=== PATIENT | female | born 1995 | race Caucasian/White ===

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

== ENCOUNTER 2017-01-17 13:53 | Emergency (ER) | payer SELFPAY ==
[~2017-01-17] VITALS: Ht 160 cm; Wt 63.6 kg
[2017-01-17 13:55] VITALS: TEMP 99.9
[2017-01-17 14:28] LABS: BASO % 0.4 % (0.0-2.0); EOS % 0.7 % (0-4.0); GRAN # 4.2 (1.4-6.5); GRAN % 75.7 % (42.2-75.2); HEMATOCRIT 43.5 % (35.0-45.0); HEMOGLOBIN 14.6 g/dl (12.0-15.0); LYMPH # 1.1 (1.2-3.4); LYMPH % 19.7 % (20.0-51.0); MEAN CELL VOLUME 88 fl (80.0-95.0); MEAN CORPUSCULAR HEMOGLOBIN 30 pg (26.0-32.0); MEAN CORPUSCULAR HGB CONC 34 g/dl (33.0-37.0); MEAN PLATELET VOLUME 9.4 fl (7.4-10.4); MONO # 0.2 (0.1-0.6); MONO % 3.1 % (1.7-9.3); PLATELET COUNT 282 K/mm3 (130-400); RED BLOOD COUNT 4.92 M/mm3 (4.10-5.30); WHITE BLOOD COUNT 5.5 K/mm3 (4.8-10.8)
[2017-01-17 14:54] LABS: ALBUMIN 4.7 gm/dL (3.5-5.0); ANION GAP 14 mmol/L (7-16); BLOOD UREA NITROGEN 8 mg/dL (7-17); CALCIUM 9.5 mg/dL (8.4-10.2); CARBON DIOXIDE 18 mmol/L (22-30); CHLORIDE 107 mmol/L (98-107); CREATININE, serum 0.61 mg/dL (0.52-1.25); GLUCOSE 119 mg/dL (74-106); POTASSIUM 3.6 mmol/L (3.4-5.0); SODIUM 139 mmol/L (137-145); TOTAL PROTEIN 7.5 gm/dL (6.4-8.2)
[2017-01-17 14:55] LABS: ADJUSTED CALCIUM 8.9 mg/dL (8.4-10.2); ALANINE AMINOTRANSFERASE 16 U/L (9-52); ALKALINE PHOSPHATASE 79 U/L (50-136); BILIRUBIN,TOTAL 0.5 mg/dL (0.0-1.0); C-REACTIVE PROTEIN < 0.5 mg/dL (0.0-0.9); LIPASE 94 U/L (23-300)
[2017-01-17 15:22] LABS: PH 6 (5-8); URINE APPEARANCE Hazy; URINE BACTERIA Rare /hpf; URINE BILIRUBIN Negative (NEGATIVE); URINE BLOOD 1+ (NEGATIVE); URINE COLOR Straw; URINE GLUCOSE Negative (NEGATIVE); URINE KETONE Negative (NEGATIVE); URINE RBC 0-2 /hpf; URINE UROBILINOGEN Negative (NEGATIVE)
[2017-01-17] MEDS ORDERED: PERCOCET 325 MG1 TA2 PO (16:04)
[2017-01-17 16:14] VITALS: BP 123/83; PULSE 96
== END 2017-01-17 16:19 | disposition home or self-care (01) ==
LOC: COL.ER 13:53
PROVIDERS: Family Medicine
DX: R10.11 Right upper quadrant pain (principal); Z90.89 Acquired absence of other organs; Z98.890 Other specified postprocedural states
CPT/HCPCS: J1170; J2405; J2550; J7030; Q9967

== ENCOUNTER 2017-06-12 19:40 | Emergency (ER) | payer SELFPAY ==
[~2017-06-12] VITALS: Ht 160 cm; Wt 81.8 kg
[~2017-06-12 19:40] MED LIST changes: +PERCOCET 325 MG1 TA2 PO
[2017-06-12 19:49] VITALS: BP 114/78; TEMP 98.1
[2017-06-12] MEDS ORDERED: ROXICODONE30 MG PO (19:54)
[2017-06-12] MEDS ORDERED: IMODIUM 2MG CAPS2 MG PO (19:55)
[2017-06-12 20:50] LABS: COLLECTION METHOD CLEAN CATCH
[2017-06-12 20:54] LABS: BASO % 0.5 % (0.0-2.0); EOS # 0.2 (0.0-0.7); EOS % 2.4 % (0-4.0); GRAN % 46.4 % (42.2-75.2); HEMATOCRIT 42.3 % (35.0-45.0); LYMPH # 2.9 (1.2-3.4); LYMPH % 45.5 % (20.0-51.0); MEAN CELL VOLUME 93 fl (80.0-95.0); MEAN CORPUSCULAR HEMOGLOBIN 31 pg (26.0-32.0); MEAN CORPUSCULAR HGB CONC 33 g/dl (33.0-37.0); MEAN PLATELET VOLUME 9.1 fl (7.4-10.4); MONO # 0.3 (0.1-0.6); MONO % 4.9 % (1.7-9.3); PLATELET COUNT 300 K/mm3 (130-400); RED BLOOD COUNT 4.57 M/mm3 (4.10-5.30); REDCELL DISTRIBUTION WIDTH-CV 12.5 % (11.5-14.5)
[2017-06-12 21:00] LABS: MUCOUS Present /lpf; PH 7 (5-8); SQUAMOUS EPITHELIAL >50 /hpf; URINE APPEARANCE Cloudy; URINE BACTERIA Rare /hpf; URINE BILIRUBIN Negative (NEGATIVE); URINE BLOOD Negative (NEGATIVE); URINE COLOR Yellow; URINE GLUCOSE Negative (NEGATIVE); URINE KETONE Trace (NEGATIVE); URINE LEUKOCYTE ESTERASE Negative (NEGATIVE); URINE NITRATE Negative (NEGATIVE); URINE PROTEIN(semi-quant) 1+ (NEGATIVE); URINE RBC 0-2 /hpf; URINE UROBILINOGEN Negative (NEGATIVE)
[2017-06-12 21:04] LABS: TRICYCLIC ANTIDEPRESS URINE NEGATIVE
[2017-06-12 21:05] LABS: ALBUMIN 4.7 gm/dL (3.5-5.0); BILIRUBIN,TOTAL 0.3 mg/dL (0.0-1.0); CALCIUM 9.7 mg/dL (8.4-10.2); CREATININE, serum 0.56 mg/dL (0.52-1.25); POTASSIUM 3.7 mmol/L (3.4-5.0); TOTAL PROTEIN 7.2 gm/dL (6.4-8.2)
[2017-06-12] MEDS ORDERED: PHENERGAN 25 TA25 MG PO (21:28)
[2017-06-12 21:38] VITALS: PULSE 94
== END 2017-06-12 21:39 | disposition home or self-care (01) ==
LOC: COL.ER 19:40
PROVIDERS: Physician Assistant
DX: R10.11 Right upper quadrant pain (principal); R11.2 Nausea with vomiting, unspecified; G89.29 Other chronic pain; M25.562 Pain in left knee; M25.561 Pain in right knee; Z98.890 Other specified postprocedural states; Z90.89 Acquired absence of other organs
CPT/HCPCS: J2270; J2765; J7030

== ENCOUNTER 2017-06-14 15:24 | Emergency (ER) | payer SELFPAY ==
[~2017-06-14] VITALS: Ht 160 cm; Wt 81.8 kg
[~2017-06-14 15:24] MED LIST changes: +IMODIUM 2MG CAPS2 MG PO; +PHENERGAN 25 TA25 MG PO; +ROXICODONE30 MG PO
[2017-06-14 15:26] VITALS: BP 138/87; TEMP 99
[2017-06-14] MEDS ORDERED: PERCOCET 325 MG1 TAB (15:43)
[2017-06-14 15:55] LABS: COLLECTION METHOD CLEAN CATCH
[2017-06-14 16:00] LABS: MUCOUS Present /lpf; PH 6 (5-8); SQUAMOUS EPITHELIAL 20-50 /hpf; URINE APPEARANCE Cloudy; URINE BACTERIA Occasional /hpf; URINE BILIRUBIN Negative (NEGATIVE); URINE BLOOD Negative (NEGATIVE); URINE COLOR Yellow; URINE GLUCOSE Negative (NEGATIVE); URINE KETONE Negative (NEGATIVE); URINE LEUKOCYTE ESTERASE Negative (NEGATIVE); URINE NITRATE Negative (NEGATIVE); URINE PROTEIN(semi-quant) Negative (NEGATIVE); URINE RBC 0-2 /hpf; URINE UROBILINOGEN Negative (NEGATIVE)
[2017-06-14 16:07] LABS: BASO % 0.6 % (0.0-2.0); EOS # 0.1 (0.0-0.7); GRAN # 2.4 (1.4-6.5); GRAN % 51.4 % (42.2-75.2); HEMATOCRIT 40.8 % (35.0-45.0); HEMOGLOBIN 13.3 g/dl (12.0-15.0); LYMPH # 1.8 (1.2-3.4); LYMPH % 39.4 % (20.0-51.0); MEAN CELL VOLUME 94 fl (80.0-95.0); MEAN CORPUSCULAR HEMOGLOBIN 31 pg (26.0-32.0); MEAN CORPUSCULAR HGB CONC 33 g/dl (33.0-37.0); MONO # 0.3 (0.1-0.6); MONO % 5.4 % (1.7-9.3); PLATELET COUNT 259 K/mm3 (130-400); RED BLOOD COUNT 4.36 M/mm3 (4.10-5.30); REDCELL DISTRIBUTION WIDTH-CV 12.3 % (11.5-14.5)
[2017-06-14 16:20] LABS: ALANINE AMINOTRANSFERASE 16 U/L (9-52); ALBUMIN 4.6 gm/dL (3.5-5.0); ALKALINE PHOSPHATASE 66 U/L (50-136); ANION GAP 10 mmol/L (7-16); AST,SGOT 17 U/L (15-37); BILIRUBIN,TOTAL 0.3 mg/dL (0.0-1.0); BLOOD UREA NITROGEN 13 mg/dL (7-17); CALCIUM 9.6 mg/dL (8.4-10.2); CARBON DIOXIDE 24 mmol/L (22-30); CHLORIDE 103 mmol/L (98-107); CREATININE, serum 0.59 mg/dL (0.52-1.25); GLUCOSE 88 mg/dL (74-106); LIPASE 53 U/L (23-300); POTASSIUM 3.9 mmol/L (3.4-5.0); SODIUM 137 mmol/L (137-145); TOTAL PROTEIN 7.3 gm/dL (6.4-8.2)
[2017-06-14 16:26] LABS: C-REACTIVE PROTEIN < 0.5 mg/dL (0.0-0.9)
[2017-06-14 17:00] VITALS: PULSE 94
== END 2017-06-14 17:02 | disposition home or self-care (01) ==
LOC: COL.ER 15:24
PROVIDERS: Nurse Practitioner
DX: R10.11 Right upper quadrant pain (principal); M25.569 Pain in unspecified knee; G89.29 Other chronic pain; Z90.49 Acquired absence of other specified parts of digestive tract

== ENCOUNTER 2020-01-09 17:50 | Emergency (ER) | payer SELFPAY ==
[~2020-01-09] VITALS: Ht 160 cm; Wt 90.9 kg
[~2020-01-09 17:50] MED LIST changes: +PERCOCET 325 MG1 TAB
[2020-01-09 18:02] VITALS: TEMP 98.4
[2020-01-09 18:45] LABS: COLLECTION METHOD CLEAN CATCH
[2020-01-09 18:50] LABS: BASO % 0.3 % (0.0-2.0); EOS % 0.1 % (0-4.0); GRAN # 5.6 (1.4-6.5); GRAN % 80.2 % (42.2-75.2); HEMATOCRIT 41.7 % (37.0-47.0); LYMPH # 1.1 (1.2-3.4); LYMPH % 15.1 % (20.0-51.0); MEAN CELL VOLUME 90 fl (80.0-100.0); MEAN CORPUSCULAR HEMOGLOBIN 30 pg (27.0-31.0); MEAN CORPUSCULAR HGB CONC 34 g/dl (33.0-37.0); MEAN PLATELET VOLUME 9.1 fl (7.4-10.4); MONO # 0.3 (0.1-0.6); PLATELET COUNT 323 K/mm3 (130-400); RED BLOOD COUNT 4.64 M/mm3 (4.10-5.30); REDCELL DISTRIBUTION WIDTH-CV 11.8 % (11.5-14.5)
[2020-01-09 18:55] LABS: MUCOUS Present /lpf; PH 5 (5-8); SQUAMOUS EPITHELIAL 0-2 /hpf; URINE APPEARANCE Clear; URINE BACTERIA Rare /hpf; URINE BILIRUBIN Negative (NEGATIVE); URINE BLOOD Negative (NEGATIVE); URINE COLOR Yellow; URINE GLUCOSE Negative (NEGATIVE); URINE KETONE 1+ (NEGATIVE); URINE LEUKOCYTE ESTERASE Trace (NEGATIVE); URINE NITRATE Negative (NEGATIVE); URINE PROTEIN(semi-quant) Negative (NEGATIVE); URINE UROBILINOGEN Negative (NEGATIVE)
[2020-01-09 19:17] LABS: ALBUMIN 4.9 gm/dL (3.5-5.0); BILIRUBIN,TOTAL 0.5 mg/dL (0.0-1.0); C-REACTIVE PROTEIN 0.7 mg/dL (0.0-0.9); CALCIUM 9.4 mg/dL (8.4-10.2); CREATININE, serum 0.53 (0.52-1.25); POTASSIUM 3.5 mmol/L (3.4-5.0); TOTAL PROTEIN 8.2 gm/dL (6.4-8.2)
[2020-01-09] MEDS ORDERED: AMOXICILLIN 8751 TAB PO (20:22)
[2020-01-09 20:55] VITALS: BP 105/84; PULSE 74
== END 2020-01-09 21:00 | disposition home or self-care (01) ==
LOC: COL.ER 17:50
PROVIDERS: Family Medicine
DX: N39.0 Urinary tract infection, site not specified (principal); R10.11 Right upper quadrant pain
CPT/HCPCS: J1885; J2405; J3010; J7120

== ENCOUNTER 2020-07-23 20:23 | Emergency (ER) | payer SELFPAY ==
[~2020-07-23] VITALS: Ht 157.5 cm; Wt 86.4 kg
[~2020-07-23 20:23] MED LIST changes: +AMOXICILLIN 8751 TAB PO
[2020-07-23 20:28] VITALS: TEMP 98.1
[2020-07-23 21:12] LABS: COLLECTION METHOD CLEAN CATCH
[2020-07-23 21:33] LABS: PH 5 (5-8); SQUAMOUS EPITHELIAL 0-2 /hpf; URINE APPEARANCE Hazy; URINE BACTERIA None Seen /hpf; URINE BILIRUBIN Negative (NEGATIVE); URINE BLOOD 1+ (NEGATIVE); URINE COLOR Yellow; URINE GLUCOSE Negative (NEGATIVE); URINE KETONE Negative (NEGATIVE); URINE LEUKOCYTE ESTERASE 2+ (NEGATIVE); URINE NITRATE Negative (NEGATIVE); URINE PROTEIN(semi-quant) Negative (NEGATIVE); URINE UROBILINOGEN Negative (NEGATIVE)
[2020-07-23] MEDS ORDERED: CEPHALEXIN500 M1 PO (22:03)
[2020-07-23 22:25] VITALS: BP 139/96; PULSE 109
== END 2020-07-23 22:27 | disposition home or self-care (01) ==
LOC: COL.ER 20:23
PROVIDERS: Emergency Medicine
DX: N36.8 Other specified disorders of urethra (principal); N39.0 Urinary tract infection, site not specified; Z32.02 Encounter for pregnancy test, result negative; Z90.89 Acquired absence of other organs; Z88.5 Allergy status to narcotic agent; Z91.041 Radiographic dye allergy status

== ENCOUNTER 2021-02-19 23:37 | Emergency (ER) | payer SELFPAY ==
[~2021-02-19] VITALS: Ht 160 cm; Wt 86.4 kg
[~2021-02-19 23:37] MED LIST changes: +CEPHALEXIN500 M1 PO
[2021-02-20 00:05] VITALS: TEMP 98.3
[2021-02-20 01:17] LABS: BASO % 0.3 % (0.0-2.0); EOS % 0.3 % (0-4.0); GRAN # 7.4 (1.4-6.5); HEMATOCRIT 41.8 % (37.0-47.0); LYMPH # 1.7 (1.2-3.4); LYMPH % 17.2 % (20.0-51.0); MEAN CELL VOLUME 88 fl (80.0-100.0); MEAN CORPUSCULAR HEMOGLOBIN 29 pg (27.0-31.0); MEAN CORPUSCULAR HGB CONC 34 g/dl (33.0-37.0); MEAN PLATELET VOLUME 9.2 fl (7.4-10.4); MONO # 0.6 (0.1-0.6); MONO % 5.8 % (1.7-9.3); PLATELET COUNT 353 K/mm3 (130-400); RED BLOOD COUNT 4.76 M/mm3 (4.10-5.30); REDCELL DISTRIBUTION WIDTH-CV 12.5 % (11.5-14.5)
[2021-02-20 02:03] LABS: COLLECTION METHOD CLEAN CATCH
[2021-02-20 02:11] LABS: PH 5 (5-8); URINE APPEARANCE Hazy; URINE BACTERIA Rare /hpf; URINE BILIRUBIN Negative (NEGATIVE); URINE BLOOD Negative (NEGATIVE); URINE COLOR Yellow; URINE GLUCOSE Negative (NEGATIVE); URINE KETONE 1+ (NEGATIVE); URINE LEUKOCYTE ESTERASE Negative (NEGATIVE); URINE NITRATE Negative (NEGATIVE); URINE PROTEIN(semi-quant) 1+ (NEGATIVE)
[2021-02-20 02:12] LABS: BILIRUBIN,TOTAL 0.8 mg/dL (0.0-1.0); C-REACTIVE PROTEIN 1.3 mg/dL (0.0-0.9); CALCIUM 9.3 mg/dL (8.4-10.2); CREATININE, serum 0.51 (0.52-1.25); POTASSIUM 3.6 mmol/L (3.4-5.0); TOTAL PROTEIN 8.4 gm/dL (6.4-8.2)
[2021-02-20 02:51] VITALS: BP 111/87; PULSE 95
== END 2021-02-20 02:51 | disposition home or self-care (01) ==
LOC: COL.ER 23:37
PROVIDERS: Emergency Medicine
DX: R10.11 Right upper quadrant pain (principal); Z32.02 Encounter for pregnancy test, result negative
CPT/HCPCS: J2405; J2550; J3010; J7030

== ENCOUNTER 2021-03-15 21:36 | Observation (INO) | payer SELFPAY ==
[~2021-03-15] VITALS: Ht 160 cm; Wt 124.0 kg
[2021-03-15 22:17] LABS: BASO % 0.1 % (0.0-2.0); GRAN # 8.4 (1.4-6.5); GRAN % 87.4 % (42.2-75.2); HEMATOCRIT 40.8 % (37.0-47.0); HEMOGLOBIN 13.8 g/dl (12.5-16.0); LYMPH # 0.9 (1.2-3.4); LYMPH % 9.8 % (20.0-51.0); MEAN CELL VOLUME 88 fl (80.0-100.0); MEAN CORPUSCULAR HEMOGLOBIN 30 pg (27.0-31.0); MEAN CORPUSCULAR HGB CONC 34 g/dl (33.0-37.0); MEAN PLATELET VOLUME 9.1 fl (7.4-10.4); MONO # 0.2 (0.1-0.6); MONO % 2.3 % (1.7-9.3); PLATELET COUNT 433 K/mm3 (130-400); RED BLOOD COUNT 4.65 M/mm3 (4.10-5.30); REDCELL DISTRIBUTION WIDTH-CV 12.1 % (11.5-14.5)
[2021-03-15 22:49] LABS: ALBUMIN 4.1 gm/dL (3.5-5.0); ALKALINE PHOSPHATASE 75 U/L (0-750); ANION GAP 16 mmol/L (7-16); AST,SGOT 14 U/L (5-34); BILIRUBIN,TOTAL 0.3 mg/dL (0.2-1.2); BLOOD UREA NITROGEN 9 mg/dL (7-19); CALCIUM 10.8 mg/dL (8.4-10.2); CARBON DIOXIDE 16 mmol/L (22-29); CHLORIDE 108 mmol/L (98-107); GLUCOSE 146 mg/dL (70-99); LIPASE 10 U/L (8-78); POTASSIUM 3.8 mmol/L (3.5-4.5); SODIUM 140 mmol/L (136-145); TOTAL PROTEIN 7.9 gm/dL (6.2-8.1)
[2021-03-15 22:51] LABS: ALANINE AMINOTRANSFERASE < 6 U/L (0-55)
[2021-03-16] MEDS ORDERED: PERCOCET 325 MG1 TAB PO (00:13)
[2021-03-16] MEDS ORDERED: PHENERGAN50 M1 PO (00:14)
--- NOTE | 2021-03-16 00:40 | NUR ---
ARRIVES FROM ED PER W/C TO ROOM 347. IS ALERT AND ORIENTED X4.
[2021-03-16 00:47] VITALS: BP 139/60; PULSE 95; TEMP 98.1
[2021-03-16] MEDS ORDERED: ROXICODONE15 MG PO (00:59)
--- NOTE | 2021-03-16 01:30 | NUR ---
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 SWABBED FOR COVID AT THIS TIME.
--- NOTE | 2021-03-16 02:13 | NUR ---
PT NEGATIVE FOR COVID.
--- NOTE | 2021-03-16 02:22 | NUR ---
PT REPORTS PAIN TO RUQ, MORPHINE 2MG IVP GIVEN AT THIS TIME. PT HAS NOT BEEN UP TO BATHROOM OF THIS TIME.
[2021-03-16 03:37] VITALS: BP 121/55; PULSE 99; TEMP 98.1
--- NOTE | 2021-03-16 05:24 | NUR ---
PT RESTING IN BED, NO REQUEST FOR PAIN MEDS AT THIS TIME.
--- NOTE | 2021-03-16 06:01 | NUR ---
MEDICATED WITH MORPHINE 2MG IVP FOR RUQ PAIN. PT UP TO BATHROOM.
[2021-03-16 08:18] VITALS: BP 106/59; PULSE 88; TEMP 98.6
--- NOTE | 2021-03-16 08:50 | NUR ---
Patient in bed resting. Alert and oriented x 3. Assessment complete. Stated pain to right flank 8/10 medications given per orders. Patient denies additional needs at this time. Fluids infusing per orders to left hand IV.
--- NOTE | 2021-03-16 09:30 | NUR ---
Contacted Radiology about US. Was notified that there is no US coverage this weekend.
[2021-03-16 09:50] LABS: BASO % 0.1 % (0.0-2.0); EOS % 0.1 % (0-4.0); GRAN # 5.3 (1.4-6.5); GRAN % 78.8 % (42.2-75.2); HEMOGLOBIN 11.9 g/dl (12.5-16.0); LYMPH # 1.1 (1.2-3.4); LYMPH % 15.9 % (20.0-51.0); MEAN CELL VOLUME 90 fl (80.0-100.0); MEAN CORPUSCULAR HEMOGLOBIN 30 pg (27.0-31.0); MEAN CORPUSCULAR HGB CONC 33 g/dl (33.0-37.0); MONO # 0.3 (0.1-0.6); MONO % 4.8 % (1.7-9.3); RED BLOOD COUNT 4.01 M/mm3 (4.10-5.30); REDCELL DISTRIBUTION WIDTH-CV 12.4 % (11.5-14.5)
[2021-03-16 10:01] LABS: PLATELET COUNT 322 K/mm3 (130-400)
[2021-03-16 10:08] LABS: ALBUMIN 3.6 gm/dL (3.5-5.0); BILIRUBIN,TOTAL 0.4 mg/dL (0.2-1.2); CALCIUM 8.9 mg/dL (8.4-10.2); CREATININE, serum 0.63 mg/dL (0.57-1.11); POTASSIUM 3.7 mmol/L (3.5-4.5); TOTAL PROTEIN 6.7 gm/dL (6.2-8.1)
--- NOTE | 2021-03-16 10:10 | NUR ---
Patient continues to state pain 7/10, medications given per orders.
--- NOTE | 2021-03-16 10:19 | NUR ---
Plan is to return home with her BF Yakov Seller in [facility] . Client reports her Jhony Anand . Client reports that she uses [facility] for medications, Patient shares that she does not have any insurance or primary care. Patient is open to use making referrals for patient financial services coordinator and primary care. Patient reports being in pain a 7 out of 10. Client gave her contact information . Denies having any concern at this time and does not have any dme use or dpoa. Will follow for care changes.Educated on services with case management.
[2021-03-16 13:00] VITALS: BP 129/71; PULSE 83; TEMP 98.4
--- NOTE | 2021-03-16 13:17 | NUR ---
Notified Dr. Thornton patient continues to complain of pain, states medications are not working. New order for dilaudid entered.
--- NOTE | 2021-03-16 13:46 | NUR ---
Patient called out states she is having nausea and continued pain 02/22. Medications given per orders. No other needs at this time.
[2021-03-16 13:56] LABS: COLLECTION METHOD CLEAN CATCH
[2021-03-16 14:05] LABS: MUCOUS Present /lpf; PH 5 (5-8); URINE APPEARANCE Hazy; URINE BACTERIA Rare /hpf; URINE BILIRUBIN Negative (NEGATIVE); URINE BLOOD Negative (NEGATIVE); URINE COLOR Yellow; URINE GLUCOSE Negative (NEGATIVE); URINE KETONE 1+ (NEGATIVE); URINE LEUKOCYTE ESTERASE Negative (NEGATIVE); URINE NITRATE Negative (NEGATIVE); URINE PROTEIN(semi-quant) Negative (NEGATIVE); URINE UROBILINOGEN Negative (NEGATIVE)
[2021-03-16 15:58] VITALS: BP 110/58; PULSE 95; TEMP 98.4
--- NOTE | 2021-03-16 18:23 | NUR ---
Patient doing has been up independently in room. Requests pain medications approximately every 2 hours, pain is consistantly at 7-8/10. Mother at bedside this afternoon. Denies needs at this time. Will report off to iron piler.
[2021-03-16 20:10] VITALS: BP 130/75; PULSE 97; TEMP 98.3
--- NOTE | 2021-03-16 20:41 | NUR ---
PT IN BED. HAS EATEN SOME OF HER DINNER AND NOW REPORTS PAIN AND NAUSEA. MEDICATED WITH DILAUDID 0.5MG IVP AND ZOFRAN 4MG IVP AT THIS TIME. PT REPORTS PAIN /. IS VOIDING WITHOUT PROBLEM. IVF TO RT AC INFUSING WITHOUT REDNESS OR SWELLING.
--- NOTE | 2021-03-16 22:47 | NUR ---
PT ASKING FOR PAIN MEDS, PAIN TO RUQ 01/22. DILAUDID 0.5MG IVP GIVEN. REPORTS NO PAIN RELIEF WITH ORAL PAIN MEDS.
[2021-03-17 00:04] VITALS: BP 134/74; PULSE 90; TEMP 98.4
--- NOTE | 2021-03-17 02:34 | NUR ---
PT ASKING FOR PAIN MEDS, RUQ PAIN 01/22. DILAUDID 0.5MG IVP GIVEN AT THIS TIME
[2021-03-17 04:26] VITALS: BP 136/76; PULSE 85; TEMP 98.7
--- NOTE | 2021-03-17 05:35 | NUR ---
PT COMPLAINS OF RUQ PAIN 8/10 AND NAUSEA. MEDICATED WITH DILAUDID 0.5MG IVP AND ZOFRAN 4MG IVP AT THIS TIME.
[2021-03-17 08:02] VITALS: BP 136/81; PULSE 91; TEMP 98.5
--- NOTE | 2021-03-17 09:30 | NUR ---
Patient alert and oriented, answers questions appropriately. See assessment. Abdomen soft, non distended, non tender to palpation. Bowel sounds active x4 quads. +Flatus. +Bowel movement. States nausea, but able to consume 100% of breakfast while having nausea. No c/o vomiting. Patient c/o pain 9/10 to right knee. Pulses palpable to RLE, no edema or redness noted. No other c/o at this time.
[2021-03-17 10:58] LABS: BASO % 0.3 % (0.0-2.0); EOS # 0.1 (0.0-0.7); GRAN # 4.4 (1.4-6.5); GRAN % 75.8 % (42.2-75.2); HEMOGLOBIN 12.7 g/dl (12.5-16.0); LYMPH # 1.1 (1.2-3.4); LYMPH % 18.9 % (20.0-51.0); MEAN CELL VOLUME 91 fl (80.0-100.0); MEAN CORPUSCULAR HEMOGLOBIN 32 pg (27.0-31.0); MEAN CORPUSCULAR HGB CONC 35 g/dl (33.0-37.0); MEAN PLATELET VOLUME 9.7 fl (7.4-10.4); MONO # 0.2 (0.1-0.6); MONO % 3.3 % (1.7-9.3); PLATELET COUNT 329 K/mm3 (130-400); REDCELL DISTRIBUTION WIDTH-CV 12.3 % (11.5-14.5)
[2021-03-17 11:01] LABS: HEMATOCRIT 36.3 % (37.0-47.0)
[2021-03-17 11:12] LABS: ALBUMIN 3.7 gm/dL (3.5-5.0); BILIRUBIN,TOTAL 0.3 mg/dL (0.2-1.2); CALCIUM 8.7 mg/dL (8.4-10.2); CREATININE, serum 0.62 mg/dL (0.57-1.11); POTASSIUM 3.5 mmol/L (3.5-4.5); TOTAL PROTEIN 6.7 gm/dL (6.2-8.1)
[2021-03-17 11:30] VITALS: BP 138/80; PULSE 80; TEMP 98.4
--- NOTE | 2021-03-17 13:30 | NUR ---
Relayed to patient that Dr Thornton put orders in for discharge, patient asks if she is getting a script for narcotics. Patient notified that Dr Thornton did not prescribed narcotic pain medications. Patient state she is out of narcotics at home, she was going to call her Dr that prescribes them on Thursday for a refill but forgot. Dr Thornton notified, declined new narcotic scripts. Patient notified she will not receive narcotics scripts, stated she will just call her other Dr on Thursday for them.
--- NOTE | 2021-03-17 14:29 | NUR ---
Kwesi recieved phone call from [employer] who stated the pt needed a ride home and she was okay with giving a voucher. Kwesi gave voucher to pt nurse.
== END 2021-03-17 14:10 | disposition home or self-care (01) ==
LOC: COL.ER 21:36 → SURG 03-16 00:03
PROVIDERS: Student in an Organized Health Care Education/Training Program; ADMIT Surgery
DX: R10.11 Right upper quadrant pain (principal); Z20.822 Contact with and (suspected) exposure to COVID-19; Z90.89 Acquired absence of other organs; Z79.891 Long term (current) use of opiate analgesic; Z79.899 Other long term (current) drug therapy
CPT/HCPCS: C9113; G0378; J1170; J2270; J2405; J3010; J7030; Q9967

== ENCOUNTER → 2021-04-12 | Outpatient (CLI) | payer SELFPAY ==
[~2021-04-12] MED LIST changes: +PHENERGAN50 M1 PO; +ROXICODONE15 MG PO
== END ==
LOC: COL.RAD 04-03 10:30
DX: R10.11 Right upper quadrant pain (principal)

== ENCOUNTER 2021-08-29 13:32 | Emergency (ER) | payer SELFPAY ==
[~2021-08-29] VITALS: Ht 160 cm; Wt 90.9 kg
[2021-08-29 14:12] LABS: COLLECTION METHOD CLEAN CATCH
[2021-08-29 14:20] LABS: BASO % 0.2 % (0.0-2.0); GRAN # 7.6 K/mm3 (1.4-6.5); GRAN % 85.1 % (42.2-75.2); HEMATOCRIT 41.9 % (37.0-47.0); LYMPH % 11.2 % (20.0-51.0); MEAN CELL VOLUME 87 fl (80.0-100.0); MEAN CORPUSCULAR HEMOGLOBIN 29 pg (27-31); MEAN CORPUSCULAR HGB CONC 33 g/dl (33.0-37.0); MEAN PLATELET VOLUME 8.9 fl (7.4-10.4); MONO # 0.3 K/mm3 (0.1-0.6); MONO % 3.1 % (1.7-9.3); PLATELET COUNT 407 K/mm3 (130-400); RED BLOOD COUNT 4.81 M/mm3 (4.10-5.30); REDCELL DISTRIBUTION WIDTH-CV 12.2 % (11.5-14.5)
[2021-08-29 14:27] LABS: MUCOUS Present (NOT PRESENT); PH 5 (5-8); URINE APPEARANCE Hazy (CLEAR/HAZY); URINE BACTERIA None Seen /hpf (NONE SEEN); URINE BILIRUBIN Negative (NEGATIVE); URINE BLOOD Negative (NEGATIVE); URINE COLOR Amber (YELLOW); URINE GLUCOSE Negative (NEGATIVE); URINE KETONE 2+ (NEGATIVE); URINE LEUKOCYTE ESTERASE Negative (NEGATIVE); URINE NITRATE Negative (NEGATIVE); URINE PROTEIN(semi-quant) 2+ (NEGATIVE); URINE UROBILINOGEN Negative (NEGATIVE)
[2021-08-29 14:31] LABS: ALBUMIN 4.4 gm/dL (3.5-5.0); BILIRUBIN,TOTAL 0.5 mg/dL (0.2-1.2); CALCIUM 9.6 mg/dL (8.4-10.2); CREATININE, serum 0.69 mg/dL (0.57-1.11); POTASSIUM 3.4 mmol/L (3.5-4.5)
[2021-08-29] MEDS ORDERED: ZOFRAN ODT4 MG PO (14:37)
[2021-08-29 15:18] VITALS: BP 130/78; PULSE 95; TEMP 98.4
== END 2021-08-29 15:18 | disposition home or self-care (01) ==
LOC: COL.ER 13:32
PROVIDERS: Emergency Medicine
DX: R10.13 Epigastric pain (principal); R00.0 Tachycardia, unspecified; E87.6 Hypokalemia; R11.2 Nausea with vomiting, unspecified; Z32.02 Encounter for pregnancy test, result negative
CPT/HCPCS: J2270; J2405; J7030

== ENCOUNTER 2021-12-05 20:03 | Emergency (ER) | payer SELFPAY ==
[~2021-12-05] VITALS: Ht 160 cm; Wt 90.9 kg
[~2021-12-05 20:03] MED LIST changes: +ZOFRAN ODT4 MG PO
[2021-12-05 20:08] VITALS: TEMP 98.4
[2021-12-05 20:43] LABS: BASO # 0.1 K/mm3 (0.0-0.2); BASO % 0.6 % (0.0-2.0); EOS # 0.1 K/mm3 (0.0-0.7); EOS % 1.3 % (0.0-4.0); HEMATOCRIT 43.4 % (37.0-47.0); HEMOGLOBIN 14.5 g/dl (12.5-16.0); LYMPH # 2.4 K/mm3 (1.2-3.4); LYMPH % 23.7 % (20.0-51.0); MEAN CELL VOLUME 89 fl (80.0-100.0); MEAN CORPUSCULAR HEMOGLOBIN 30 pg (27-31); MEAN CORPUSCULAR HGB CONC 33 g/dl (33.0-37.0); MEAN PLATELET VOLUME 9.1 fl (7.4-10.4); MONO # 0.5 K/mm3 (0.1-0.6); MONO % 5.1 % (1.7-9.3); PLATELET COUNT 416 K/mm3 (130-400); REDCELL DISTRIBUTION WIDTH-CV 12.2 % (11.5-14.5)
[2021-12-05 21:02] LABS: ALBUMIN 4.2 gm/dL (3.5-5.0); CALCIUM 9.7 mg/dL (8.4-10.2); CREATININE, serum 0.69 mg/dL (0.57-1.11); POTASSIUM 3.7 mmol/L (3.5-4.5); TOTAL PROTEIN 7.9 gm/dL (6.2-8.1)
[2021-12-05 21:21] LABS: BILIRUBIN,TOTAL 0.6 mg/dL (0.2-1.2)
[2021-12-05] MEDS ORDERED: PROTONIX 40MG T40 MG PO (21:56)
[2021-12-05 22:25] VITALS: BP 140/91; PULSE 98
== END 2021-12-05 22:25 | disposition home or self-care (01) ==
LOC: COL.ER 20:03
PROVIDERS: Personal Emergency Response Attendant
DX: R10.11 Right upper quadrant pain (principal); R11.2 Nausea with vomiting, unspecified; Z88.6 Allergy status to analgesic agent; Z32.02 Encounter for pregnancy test, result negative; Z28.310 Unvaccinated for COVID-19
CPT/HCPCS: J2270; J2405; J7030; Q9967

== ENCOUNTER 2022-01-20 19:02 | Emergency (ER) | payer SELFPAY ==
[~2022-01-20] VITALS: Ht 160 cm; Wt 86.4 kg
[~2022-01-20 19:02] MED LIST changes: +PROTONIX 40MG T40 MG PO
[2022-01-20 19:15] VITALS: TEMP 98.6
[2022-01-20 20:15] LABS: BASO # 0.1 K/mm3 (0.0-0.2); BASO % 0.9 % (0.0-2.0); EOS # 0.2 K/mm3 (0.0-0.7); EOS % 2.7 % (0.0-4.0); GRAN # 2.8 K/mm3 (1.4-6.5); GRAN % 50.2 % (42.2-75.2); HEMOGLOBIN 12.7 g/dl (12.5-16.0); LYMPH # 2.3 K/mm3 (1.2-3.4); LYMPH % 41.1 % (20.0-51.0); MEAN CELL VOLUME 89 fl (80.0-100.0); MEAN CORPUSCULAR HEMOGLOBIN 30 pg (27-31); MEAN CORPUSCULAR HGB CONC 33 g/dl (33.0-37.0); MEAN PLATELET VOLUME 9.1 fl (7.4-10.4); MONO # 0.3 K/mm3 (0.1-0.6); MONO % 4.9 % (1.7-9.3); PLATELET COUNT 345 K/mm3 (130-400); RED BLOOD COUNT 4.26 M/mm3 (4.10-5.30); REDCELL DISTRIBUTION WIDTH-CV 12.3 % (11.5-14.5)
[2022-01-20 20:37] LABS: ALBUMIN 3.5 gm/dL (3.5-5.0); BILIRUBIN,TOTAL 0.1 mg/dL (0.2-1.2); CALCIUM 8.8 mg/dL (8.4-10.2); CREATININE, serum 0.65 mg/dL (0.57-1.11); POTASSIUM 3.5 mmol/L (3.5-4.5); TOTAL PROTEIN 6.5 gm/dL (6.2-8.1)
[2022-01-20] MEDS ORDERED: REGLAN 10MG10 MG/TAB PO (21:37)
[2022-01-20 22:03] VITALS: BP 134/91; PULSE 81
== END 2022-01-20 21:56 | disposition home or self-care (01) ==
LOC: COL.ER 19:02
PROVIDERS: Emergency Medicine
DX: R10.11 Right upper quadrant pain (principal); R10.13 Epigastric pain; R11.0 Nausea; Z90.49 Acquired absence of other specified parts of digestive tract
CPT/HCPCS: J1885; J2765; J7030; Q9967

== ENCOUNTER 2022-07-08 22:21 | Emergency (ER) | payer SELFPAY ==
[~2022-07-08] VITALS: Ht 160 cm; Wt 86.4 kg
[~2022-07-08 22:21] MED LIST changes: +REGLAN 10MG10 MG/TAB PO
[2022-07-08 22:31] VITALS: TEMP 98.7
[2022-07-08 23:51] LABS: BASO % 0.3 % (0.0-2.0); EOS % 0.2 % (0.0-4.0); GRAN # 7.5 K/mm3 (1.4-6.5); HEMATOCRIT 41.9 % (37.0-47.0); HEMOGLOBIN 13.6 g/dl (12.5-16.0); LYMPH # 1.4 K/mm3 (1.2-3.4); MEAN CELL VOLUME 93 fl (80.0-100.0); MEAN CORPUSCULAR HEMOGLOBIN 30 pg (27-31); MEAN CORPUSCULAR HGB CONC 33 g/dl (33.0-37.0); MONO # 0.4 K/mm3 (0.1-0.6); MONO % 4.3 % (1.7-9.3); PLATELET COUNT 351 K/mm3 (130-400); RED BLOOD COUNT 4.52 M/mm3 (4.10-5.30); REDCELL DISTRIBUTION WIDTH-CV 12.4 % (11.5-14.5)
[2022-07-09 00:10] LABS: ALBUMIN 3.9 gm/dL (3.5-5.0); ALKALINE PHOSPHATASE 67 U/L (40-150); ANION GAP 13 mmol/L (7-16); AST,SGOT 14 U/L (5-34); BILIRUBIN,TOTAL 0.4 mg/dL (0.2-1.2); BLOOD UREA NITROGEN 7 mg/dL (7-19); C-REACTIVE PROTEIN 1.91 mg/dL (0.00-0.50); CALCIUM 9.7 mg/dL (8.4-10.2); CARBON DIOXIDE 19 mmol/L (22-29); CHLORIDE 108 mmol/L (98-107); CREATININE, serum 0.62 mg/dL (0.57-1.11); GLUCOSE 116 mg/dL (70-99); LIPASE 20 U/L (8-78); POTASSIUM 3.8 mmol/L (3.5-4.5); SODIUM 140 mmol/L (136-145); TOTAL PROTEIN 7.4 gm/dL (6.2-8.1)
[2022-07-09 00:12] LABS: ALANINE AMINOTRANSFERASE < 6 U/L (0-55)
[2022-07-09] MEDS ORDERED: ZOFRAN ODT4 MG PO (00:27)
[2022-07-09] MEDS ORDERED: PROTONIX 40MG T40 MG PO (00:27)
[2022-07-09 00:55] VITALS: BP 140/77; PULSE 64
== END 2022-07-09 00:55 | disposition home or self-care (01) ==
LOC: COL.ER 22:21
PROVIDERS: Emergency Medicine
DX: K29.71 Gastritis, unspecified, with bleeding (principal); G89.29 Other chronic pain; M25.569 Pain in unspecified knee; Z79.1 Long term (current) use of non-steroidal anti-inflammatories (NSAID); Z87.19 Personal history of other diseases of the digestive system; Z90.49 Acquired absence of other specified parts of digestive tract; Z28.310 Unvaccinated for COVID-19
CPT/HCPCS: C9113; J2405; J2550; J7030

== ENCOUNTER 2024-01-30 18:37 | Emergency (ER) | payer SELFPAY ==
[~2024-01-30] VITALS: Ht 160 cm; Wt 90.9 kg
[2024-01-30 18:39] VITALS: TEMP 97.9
[2024-01-30] MEDS ORDERED: NS 1,000 ML IV ONE (21:15)
[2024-01-30] MEDS ORDERED: Ketorolac 30 MG/ML VIAL IV ONE (21:15)
[2024-01-30 21:28] LABS: BASO # 0.1 K/mm3 (0.0-0.2); BASO % 0.4 % (0.0-2.0); GRAN # 11.1 K/mm3 (1.4-6.5); GRAN % 82.9 % (42.2-75.2); HEMATOCRIT 45.2 % (37.0-47.0); HEMOGLOBIN 15.2 g/dl (12.5-16.0); LYMPH # 1.6 K/mm3 (1.2-3.4); LYMPH % 12.1 % (20.0-51.0); MEAN CELL VOLUME 90 fl (80.0-100.0); MEAN CORPUSCULAR HEMOGLOBIN 30 pg (27-31); MEAN CORPUSCULAR HGB CONC 34 g/dl (33.0-37.0); MEAN PLATELET VOLUME 9.2 fl (7.4-10.4); MONO # 0.5 K/mm3 (0.1-0.6); MONO % 3.9 % (1.7-9.3); PLATELET COUNT 547 K/mm3 (130-400); RED BLOOD COUNT 5.02 M/mm3 (4.10-5.30); REDCELL DISTRIBUTION WIDTH-CV 12.6 % (11.5-14.5)
[2024-01-30 21:42] LABS: ALBUMIN 4.9 g/dL (3.5-5.0); ALKALINE PHOSPHATASE 68 U/L (40-150); ANION GAP 24 mmol/L (7-16); AST,SGOT 12 U/L (5-34); BILIRUBIN,TOTAL 0.3 mg/dL (0.2-1.2); BLOOD UREA NITROGEN 11 mg/dL (7-19); CALCIUM 10.5 mg/dL (8.4-10.2); CHLORIDE 109 mEq/L (98-107); CREATININE, serum 0.79 mg/dL (0.57-1.11); GLUCOSE 93 mg/dL (70-99); LIPASE 85 U/L (8-78); POTASSIUM 3.8 mEq/L (3.5-4.5); SODIUM 143 mEq/L (136-145); TOTAL PROTEIN 8.8 g/dl (6.2-8.1)
[2024-01-30 21:46] LABS: COLLECTION METHOD CLEAN CATCH
[2024-01-30 21:53] LABS: ALANINE AMINOTRANSFERASE < 6 U/L (0-55)
[2024-01-30 21:57] LABS: PH 5.5 (5.0-8.5); URINE APPEARANCE CLOUDY (CLEAR/HAZY); URINE BLOOD TRACE (NEGATIVE); URINE COLOR YELLOW (YELLOW); URINE GLUCOSE NEGATIVE (NEGATIVE); URINE KETONE 4+ (NEGATIVE); URINE NITRATE NEGATIVE (NEGATIVE); URINE PROTEIN(semi-quant) 3+ (NEGATIVE)
[2024-01-30 22:17] LABS: SQUAMOUS EPITHELIAL 20-50 /hpf (0-10); URINE RBC NONE SEEN /hpf (0-2)
[2024-01-30 22:18] LABS: MUCOUS PRESENT (NOT PRESENT); URINE BACTERIA MODERATE /hpf (NONE SEEN)
[2024-01-30] MEDS ORDERED: PHENERGAN 25 TA25 MG PO (22:41)
[2024-01-30 23:12] VITALS: BP 114/63; PULSE 77
== END 2024-01-30 23:12 | disposition home or self-care (01) ==
LOC: COL.ER 18:37
PROVIDERS: Emergency Medicine
DX: R10.11 Right upper quadrant pain (principal); R11.2 Nausea with vomiting, unspecified; F17.290 Nicotine dependence, other tobacco product, uncomplicated
CPT/HCPCS: J0780; J1885; J7030